=== PATIENT | female | born 1985 | race Caucasian/White ===

== ENCOUNTER 2017-08-30 20:52 | Emergency (ER) | payer OTHER ==
[~2017-08-30] VITALS: Ht 167.6 cm; Wt 82.0 kg
[~2017-08-30 20:52] MED LIST: PERC5TAB12 PO; PRENCAP10 PO
[2017-08-30 21:09] VITALS: BP 120/76; PULSE 80; RESP 16; TEMP 98.6
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
[2017-08-30] MEDS ORDERED: SODIUM CHLOR 0.9% 1000 ML INJ 1,000 ML IV ONE (21:15)
--- NOTE | 2017-08-30 21:56 | RADRPT ---
EXAM DATE/TIME: 08/30/2017 21:13 [facility] COMPARISON: No previous studies available for comparison. INDICATIONS : Pain post fall. MEDICAL HISTORY : None. SURGICAL HISTORY : None. ENCOUNTER: Initial ACUITY: 1 day PAIN SCORE: Non-responsive. LOCATION: Right Hand 1st digit. FINDINGS: Three view examination of the right hand demonstrates no soft tissue swelling, dislocation, or fractu re. The carpal bones appear intact. The interphalangeal and metacarpophalangeal joints are intact. Bony mineralization is normal. CONCLUSION: Unremarkable examination of the right hand. Akbar Gilbert Jr., MD on August 30, 2017 at 21:53 Board Certified Radiologist. This report was verified electronically.
[2017-08-30] MEDS ORDERED: HYDR-3516 PO (22:11)
== END 2017-08-30 23:08 | disposition home or self-care (01) ==
LOC: NEPB 20:52
DX: S01.511A Laceration without foreign body of lip, initial encounter (principal); S60.221A Contusion of right hand, initial encounter; Z72.0 Tobacco use; W01.0XXA Fall on same level from slipping, tripping and stumbling without subsequent striking against object, initial encounter
CPT/HCPCS: 12011; 73130; 96360; 99284; J7030

== ENCOUNTER 2017-10-02 21:12 | Emergency (ER) | payer OTHER ==
[~2017-10-02] VITALS: Ht 167.6 cm; Wt 93.0 kg
[~2017-10-02 21:12] MED LIST changes: +HYDR-3516 PO; -PERC5TAB12 PO; -PRENCAP10 PO
[2017-10-02 21:18] VITALS: BP 129/92; PULSE 108; RESP 22; TEMP 98.2; O2SAT 100
[2017-10-02] MEDS ORDERED: SODIUM CHLOR 0.9% 1000 ML INJ 1,000 ML IV SCH (21:28)
[2017-10-02] MEDS ORDERED: MORPHINE SULFATE 4 MG/ML INJ ONE (21:29)
[2017-10-02] MEDS ORDERED: ONDANSETRON HCL 4 MG/2 ML VIAL ONE (21:29)
[2017-10-02] MEDS ORDERED: SODIUM CHLORIDE 0.9% FLUSH 10 ML FLUSH IVF PRN (21:30)
[2017-10-02] MEDS ORDERED: MORPHINE SULFATE 4 MG/ML INJ IV PUSH ONE (21:30)
[2017-10-02] MEDS ORDERED: ONDANSETRON HCL 4 MG/2 ML VIAL IV PUSH ONE (21:30)
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
[2017-10-02] MEDS ORDERED: KETOROLAC TROMETHAMINE 30 MG/ML (IVP) VIAL IV PUSH ONE (23:30)
== END 2017-10-03 01:30 | disposition home or self-care (01) ==
LOC: NEPE 21:12
DX: S16.1XXA Strain of muscle, fascia and tendon at neck level, initial encounter (principal); S86.911A Strain of unspecified muscle(s) and tendon(s) at lower leg level, right leg, initial encounter; V43.52XA Car driver injured in collision with other type car in traffic accident, initial encounter
CPT/HCPCS: 71010; 72125; 72170; 73564; 96374; 96375; 99285; J1885; J2270; J2405; J7030